=== PATIENT | female | born 1995 | race Caucasian/White ===

== ENCOUNTER 2017-10-28 14:12 | Emergency (ER) | payer OTHER ==
[~2017-10-28] VITALS: Ht 162.5 cm; Wt 90.7 kg
[~2017-10-28 14:12] MED LIST: AMOXIL500 MG PO; ANAPROX DS550 MG PO; BACTRIM DS 8001 TA1 PO; CIPRODEX 0.3%-7.5 ML OT; CLONIDINE0.1 MG/24 TD; CYCLOBENZAPRINE10 MG PO; HYDROCODONE BIT1 T11 PO; MACROBID100 M1 PO; MOTRIN400 MG PO; NORCO 5-325 TA1 EACH PO; OLANZAPINE10 MG PO; PYRIDIUM200 MG PO; ROBAXIN500 M1 PO; SUDAFED 12 HOU120 MG PO; TESSALON PERLE100 MG PO; ULTRAM50 MG PO; VALTREX500 MG PO; ZITHROMAX Z PA250 MG PO; Zofran4 MG PO
[2017-10-28] MEDS ORDERED: CYCLOBENZAPRINE10 MG PO (16:22)
== END 2017-10-28 16:42 | disposition home or self-care (01) ==
LOC: ED 14:12
DX: M62.838 Other muscle spasm (principal); M62.830 Muscle spasm of back; M54.2 Cervicalgia; F17.200 Nicotine dependence, unspecified, uncomplicated; Z88.6 Allergy status to analgesic agent; V47.5XXA Car driver injured in collision with fixed or stationary object in traffic accident, initial encounter; Y93.89 Activity, other specified; Y92.413 State road as the place of occurrence of the external cause; Y99.8 Other external cause status

== ENCOUNTER → 2025-02-21 | Outpatient (CLI) | payer MEDICAID ==
[~2025-02-21] MED LIST changes: +ONDANSETRON4 MG SL; +PEPCID20 MG PO; +PHENERGAN25 M3 PO
[2025-02-21 12:14] LABS: BASO # 0.1 10*3/uL (0.0-0.1); BASO % 0.7 % (0.0-1.0); EOS # 0.2 10*3/uL (0.0-0.4); EOS % 2.5 % (1.0-4.0); HEMATOCRIT 39.6 % (37.0-47.0); MEAN CELL VOLUME 93.6 fl (81.0-99.0); MEAN CORPUSCULAR HGB 31.2 pg (27.0-31.0); MEAN CORPUSCULAR HGB CONC 33.3 g/dl (33.0-37.0); MEAN PLATELET VOLUME 9.2 fl (9.6-12.3); MONO # 0.6 10*3/uL (0.1-1.0); MONO % 6.7 % (3.0-9.0); NEUT # 5.6 10*3/uL (2.3-7.9); NEUT % 65.7 % (47.0-73.0); PLATELET COUNT AUTOMATED 326 10*3/uL (130-400); RED BLOOD COUNT 4.23 10*6/uL (4.10-5.10); RED CELL DISTRI WIDTH 12.7 % (0-14.5); WHITE BLOOD COUNT 8.5 10*3/uL (4.8-10.8)
[2025-02-21 12:35] LABS: ALKALINE PHOSPHATASE 78 U/L (46-116); BUN 11 mg/dl (9-23); CHLORIDE 107 mmol/L (98-107); POTASSIUM 3.8 mmol/L (3.4-5.1); SGPT/ALT 46 U/L (5-49); TOTAL PROTEIN 7.1 gm/dL (6.0-8.0)
[2025-02-22 05:06] LABS: HBsAG SCREEN Negative (Negative); HEP B CORE Ab, IgM Negative (Negative)
[2025-02-23 19:07] LABS: TB1 Ag VALUE 0.07 IU/mL (.)
== END | disposition home or self-care (01) ==
LOC: LAB 11:46
PROVIDERS: ATTEND Physician Assistant Medical
DX: F12.20 Cannabis dependence, uncomplicated (principal)

== ENCOUNTER 2025-05-06 20:17 | Emergency (ER) | payer MEDICAID ==
[~2025-05-06] VITALS: Ht 162.5 cm; Wt 97.5 kg
[2025-05-06] MEDS ORDERED: TRAZODONE100 MG PO (20:37)
[2025-05-06] MEDS ORDERED: TOPAMAX100 M1 PO (20:37)
[2025-05-06] MEDS ORDERED: ABILIFY20 MG PO (20:37)
[2025-05-06] MEDS ORDERED: Ondansetron Hydrochloride 4 MG/2 ML VIAL IV ONE (20:55)
[2025-05-06] MEDS ORDERED: SODIUM CHLORIDE 0.9% 1,000 ML IV ONE (20:55)
[2025-05-06 21:14] LABS: MEAN CELL VOLUME 91.2 fl (81.0-99.0); MEAN CORPUSCULAR HGB 31.9 pg (27.0-31.0); MEAN PLATELET VOLUME 9.8 fl (9.6-12.3); NUCLEATED RED BLOOD CELL 0.0 % (0.0-0.0); NUCLEATED RED BLOOD CELL 0.0 10*3/uL (0.0-0.0); PLATELET COUNT AUTOMATED 342 10*3/uL (130-400); RED CELL DISTRI WIDTH 12.3 % (0-14.5)
[2025-05-06 21:16] LABS: MANUAL DIFF REFLEX YES
[2025-05-06 21:19] LABS: BILIRUBIN Negative (Negative); BLOOD Negative (Negative); CLARITY Turbid (Clear); COLOR Yellow (Yellow); KETONE 1+ (Negative); LEUKO ESTERASE Negative (Negative); NITRITE Negative (Negative); SPECIFIC GRAVITY 1.025 (1.001-1.030); UROBILINOGEN 1.0 E.U./dl (0.0-1.0)
[2025-05-06 21:22] LABS: PH >= 9.0 (4.5-8.0)
[2025-05-06 21:31] LABS: BACTERIA 2+; WBC 0-2 wbc/hpf (0-5)
[2025-05-06 21:36] LABS: BUN 7 mg/dl (9-23); PLATELET SUFFICIENCY NORMAL (NORMAL); SGPT/ALT 17 U/L (5-49)
[2025-05-06] MEDS ORDERED: Metoclopramide Hydrochloride 10 MG/2 ML VIAL IV ONE (22:15)
[2025-05-06] MEDS ORDERED: diphenhydrAMINE hydrochloride 50 MG/ML VIAL IV ONE (22:15)
[2025-05-07] MEDS ORDERED: Ondansetron4 MG PO (00:16)
[2025-05-07] MEDS ORDERED: REGLAN10 M1 PO (00:16)
== END 2025-05-07 00:26 | disposition home or self-care (01) ==
LOC: ED 20:17
PROVIDERS: Emergency Medicine
DX: A08.4 Viral intestinal infection, unspecified (principal); R11.2 Nausea with vomiting, unspecified; Z88.6 Allergy status to analgesic agent; Z79.899 Other long term (current) drug therapy; E66.9 Obesity, unspecified; Z68.30 Body mass index [BMI] 30.0-30.9, adult